=== PATIENT | female | born 1960 | race Hispanic/Latino ===

== ENCOUNTER → 2021-09-19 | Outpatient (CLI) | payer OTHER | LOC: RAD 13:54 | PROVIDERS: ATTEND Internal Medicine | DX: M47.812 Spondylosis without myelopathy or radiculopathy, cervical region (principal); M47.816 Spondylosis without myelopathy or radiculopathy, lumbar region | CPT/HCPCS: 72040; 72110 ==

== ENCOUNTER → 2021-10-26 | Day surgery (SDC) | payer OTHER ==
[2021-10-24 15:14] LABS: ANION GAP 16.9 mmol/L (8-16); BLOOD UREA NITROGEN 37 mg/dL (7-26); BUN/CREATININE RATIO 29 (6-25); CALCIUM 10.1 mg/dL (8.4-10.2); CARBON DIOXIDE 25 mmol/L (22-29); CHLORIDE 101 mmol/L (98-107); CREATININE, SERUM 1.26 mg/dL (0.57-1.11); GLUCOSE 165 mg/dL (74-118); POTASSIUM 4.9 mmol/L (3.5-5.1); SODIUM 138 mmol/L (136-145)
[~2021-10-26] MED LIST: ATORVASTATIN CA20 MG PO; BENICAR20 MG PO; CYMBALTA30 MG PO; FENTANYL CITRATE/PF 100MCG/2 ML INJ ONE; GLIPIZIDE5 MG PO; HYDROCHLOROTHIA25 MG PO; LIDOCAINE HCL 2% LOCAL INJ 5 ML SDV VIAL INJ ONE; METFORMIN HCL500 MG PO; METOCLOPRAMIDE HCL 10 MG/2ML VIAL ONE; MIDAZOLAM HCL 2 MG/2 ML VIAL ONE; NEURONTIN100 MG PO; OMEPRAZOLE40 MG PO; PIOGLITAZONE HC45 MG PO; PROPOFOL IV EMULSION 10 MG/ML 20 ML VIAL ONE; VITAMIN B-121000 MCG PO; VITAMIN E400 UNI1 PO
[2021-10-26 13:55] VITALS: BP 129/77
== END | disposition home or self-care (01) ==
LOC: OR 10:25
PROVIDERS: ATTEND Internal Medicine Gastroenterology
DX: K29.70 Gastritis, unspecified, without bleeding (principal); K31.7 Polyp of stomach and duodenum; K29.80 Duodenitis without bleeding; K31.89 Other diseases of stomach and duodenum; K20.90 Esophagitis, unspecified without bleeding; K75.81 Nonalcoholic steatohepatitis (NASH); Z71.3 Dietary counseling and surveillance; E11.22 Type 2 diabetes mellitus with diabetic chronic kidney disease; I12.9 Hypertensive chronic kidney disease with stage 1 through stage 4 chronic kidney disease, or unspecified chronic kidney disease; N18.9 Chronic kidney disease, unspecified; E78.5 Hyperlipidemia, unspecified; Z01.810 Encounter for preprocedural cardiovascular examination; Z01.812 Encounter for preprocedural laboratory examination; Z20.822 Contact with and (suspected) exposure to COVID-19; Z79.84 Long term (current) use of oral hypoglycemic drugs; Z79.899 Other long term (current) drug therapy; Z68.26 Body mass index [BMI] 26.0-26.9, adult
CPT/HCPCS: 0223U; 36415 ×2; 43239; 80048; 82948; 93005; C9113; J2001; J2250; J2704; J2765; J3010

== ENCOUNTER → 2025-01-01 | Outpatient (REF) | payer OTHER ==
[~2025-01-01] MED LIST changes: -FENTANYL CITRATE/PF 100MCG/2 ML INJ ONE; -LIDOCAINE HCL 2% LOCAL INJ 5 ML SDV VIAL INJ ONE; -METOCLOPRAMIDE HCL 10 MG/2ML VIAL ONE; -MIDAZOLAM HCL 2 MG/2 ML VIAL ONE; -PROPOFOL IV EMULSION 10 MG/ML 20 ML VIAL ONE
== END ==
LOC: RAD 14:31
PROVIDERS: ATTEND Internal Medicine
DX: M47.816 Spondylosis without myelopathy or radiculopathy, lumbar region (principal)
CPT/HCPCS: 72110